=== PATIENT | male | born 1990 | race Caucasian/White ===

== ENCOUNTER 2020-07-31 07:04 | Observation (INO) | payer OTHER, SELFPAY ==
[2020-07-31] VITALS (71 sets, daily range): BP systolic 104–170; BP diastolic 68–114; PULSE 17–119; RESP 7–52; TEMP 36.2–36.6; O2SAT 85–100; BMI 21.8; BMI 20.7
--- NOTE | 2020-07-31 | DI.RAD.S_ITS ---
PROCEDURE: XR SHOULDER LT MIN 2V INDICATIONS: OPEN REDUCTION/ORIF HUMERUS TECHNIQUE: 3 fluoroscopic views of the shoulder were acquired. COMPARISON: [facility], BRIANNA, XR SHOULDER LT MIN 2V, 07/31/2020, 9:40. FINDINGS: Sequential images demonstrate reduction of an anterior inferior shoulder dislocation. There is a displaced greater tuberosity fracture. IMPRESSION: 1. Interval reduction of an anterior inferior shoulder dislocation. 2. Displaced greater tuberosity fracture. Dictated by: Joaquin Gonzalez M.D. on 07/31/2020 at 21:27 Approved by: Joaquin Gonzalez M.D. on 07/31/2020 at 21:28
--- NOTE | 2020-07-31 07:10 | DI.RAD.S_ITS ---
PROCEDURE: XR SHOULDER LT MIN 2V INDICATIONS: shoulder injury TECHNIQUE: 2 views of the shoulder were acquired. COMPARISON: [facility], CR, XR CHEST 1V, 07/31/2020, 7:29. FINDINGS: Suboptimal exam. Bones: Anterior dislocation of the humeral head. No suspicious bony lesions. Visualized ribs appear intact. Soft tissues: No suspicious soft tissue calcifications. IMPRESSION: Anterior shoulder dislocation. Dictated by: Sherif Ahn M.D. on 07/31/2020 at 8:05 Approved by: Sherif Ahn M.D. on 07/31/2020 at 8:07
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
[2020-07-31] MEDS: MORPHINE 4 MG/ML INJ IV (07:24)
[2020-07-31] MEDS: HYDROMORPHONE 1 MG INJ IV (07:41)
[2020-07-31] MEDS: SODIUM CHLORIDE 0.9% 1,000 ML 150 ML IV (07:41)
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
[2020-07-31] MEDS: fentaNYL 100 MCG/2 ML INJ 50 MCG IV (08:29)
--- NOTE | 2020-07-31 08:36 | DI.CT.S_ITS ---
PROCEDURE: CT FACIAL BONES WO CON INDICATIONS: trauma TECHNIQUE: Noncontrast 2.5 mm thick axial images acquired from the mandible through the frontal sinuses, with coronal and sagittal reformatting. For radiation dose reduction, the following was used: automated exposure control, adjustment of mA and/or kV according to patient size. COMPARISON: None. FINDINGS: Image quality: Excellent. Bones and teeth: There are displaced fractures of the lateral wall and floor of the right orbit, and nondisplaced fracture of the medial wall of the right orbit. Air collections are seen within the right orbit. There is a tiny hyperdensity within the right globe. Metallic densities in the medial aspect of the left orbit may be foreign bodies or surgical clips. Displaced fractures are present involving the anterior wall, lateral wall, roof, floor, and medial wall of the right maxillary sinus. There is nondisplaced fracture involving the medial wall and lateral wall of the left maxillary sinus. Air-fluid levels are present in maxillary sinuses bilaterally, compatible with hematomas. Mildly displaced right nasal bone fracture is seen. There is minimally displaced fracture of the nasal septum. The left nasal bone appears intact. There is a comminuted fracture of the left lateral pterygoid plate. Visualized portions of the mandible demonstrate no fractures or subluxation. Zygomatic arches are intact. Visualized portions of the skull base and auditory canals are intact. Sinuses: Paranasal sinuses are aerated, without fluid levels, mucosal thickening, or mucoceles. Mastoid air cells are aerated. Soft tissues: Right periorbital soft swelling. Paranasal soft tissue swelling. A couple of tiny superficial subcutaneous soft tissue hyperdensity in the prevascular area. No enlarged lymph nodes. Metallic soft tissue foreign body with streaking artifact medial to the right mandibular angle. Vascular: Visualized vascular structures appear normal in the absence of contrast. Bony vascular foramina and canals are intact. IMPRESSION: 1. Right orbital fractures involving the lateral and medial abel, as well as the orbital floor. 2. Multiple complex right maxillary sinus wall fractures as described. 3. Nondisplaced fracture of the medial wall and lateral wall of the left maxillary sinus. 4. Mildly displaced right nasal bone fracture is seen. 5. Minimally displaced fracture of the nasal septum. 6. Mildly comminuted fracture of the left lateral pterygoid plate. 7. Air-fluid levels are present in maxillary sinuses bilaterally are compatible with hematomas. 8. Small hyperdensity within the right globe could be a small foreign body. 9. Metallic foreign bodies or surgical clips in the medial aspect of the left orbit. 10. Right periorbital soft tissue swelling and paranasal swelling consistent with soft tissue contusions. Dictated by: Sherif Ahn M.D. on 07/31/2020 at 8:36 Approved by: Sherif Ahn M.D. on 07/31/2020 at 8:55
[2020-07-31 09:09] LABS: Add Manual Diff / Slide Review NO; Basophils Absolute Auto 0 /uL (0-100); Basophils Percent Auto 0.2 % (0-2); Eosinophils Absolute Auto 0 /uL (0-450); Eosinophils Percent Auto 0.2 % (2-4); Hematocrit 40.7 % (41-53); Hemoglobin 13.4 g/dL (13.5-17.5); Lymphocytes Absolute Auto 700 /uL (1100-4500); Lymphocytes Percent Auto 3.5 % (25-40); Mean Corpuscular Hemoglobin 28.3 PG (26-34); Mean Corpuscular Volume 85.5 fL (80-100); Monocytes Absolute Auto 1400 /uL (0-900); Monocytes Percent Auto 6.5 % (3-14); Neutrophils Absolute Auto 18600 /uL (1500-7000); Neutrophils Percent Auto 89.6 % (50-75); Platelet Count 240 X10^3/uL (150-400); Red Blood Cell Count 4.76 X10^6/uL (4.5-5.9); White Blood Cell Count 20.7 X10^3/uL (4.5-11.0)
[2020-07-31] MEDS: PROPARACAINE 0.5% OPHTH SOL 1 DROPS EYE-RIGHT (09:11)
[2020-07-31] MEDS: FLUORESCEIN 1 MG STRIP EYE-RIGHT (09:11)
[2020-07-31 09:15] LABS: INR 1.1 (0.9-1.3); Prothrombin Time 12.6 SECONDS (10.1-12.7)
[2020-07-31 09:18] LABS: PTT Partial Thromboplastin Tim 34 SECONDS (26.4-36.2)
[2020-07-31 09:21] LABS: Alanine Aminotransferase 17 IU/L (<50); Albumin 4.6 g/dL (3.5-5.0); Albumin Globulin Ratio 1.6 (1.0-2.8); Alkaline Phosphatase 90 U/L (38-126); Aspartate Aminotransferase 33 IU/L (17-59); BUN Creatinine Ratio 23.5 (6-22); Bilirubin Total 0.4 mg/dL (0.2-1.3); Blood Urea Nitrogen 12 mg/dL (9-20); Calcium 9.3 mg/dL (8.4-10.2); Carbon Dioxide 28 mmol/L (22-32); Chloride 100 mmol/L (98-107); Estimated Glomerular Filt Rate > 60.0 mL/min (>60); Ethanol (ETOH) < 10 mg/dL; Globulin 2.9 g/dL (1.7-4.1); Glucose 161 mg/dL (70-100); HEMOLYSIS 43 (0-50); Lipase 54 U/L (23-300); Potassium 3.6 mmol/L (3.4-5.1); Sodium 137 mmol/L (137-145); Total Protein 7.5 g/dL (6.3-8.2)
[2020-07-31] MEDS: KETAMINE 500 MG/5 ML INJ 75 MG IV (09:37)
--- NOTE | 2020-07-31 09:48 | DI.RAD.S_ITS ---
PROCEDURE: XR SHOULDER LT MIN 2V INDICATIONS: POST ATTEMPTED REDUCTION TECHNIQUE: To views of the shoulder were acquired. COMPARISON: [facility], CR, XR SHOULDER LT MIN 2V, 07/31/2020, 7:29. FINDINGS: Bones: Anterior inferior dislocation of the humeral head. The inferior glenoid appears irregular, suspicious for bony Bankart lesion. No suspicious bony lesions. Visualized ribs appear intact. Soft tissues: No suspicious soft tissue calcifications. IMPRESSION: 1. Persistent anterior inferior dislocation of humeral head. 2. Irregularity of the inferior glenoid, suspicious for Bankart lesion. Dictated by: Sherif Ahn M.D. on 07/31/2020 at 10:18 Approved by: Sherif Ahn M.D. on 07/31/2020 at 10:19
--- NOTE | 2020-07-31 09:56 | DI.CT.S_ITS ---
PROCEDURE: CT UE LT WO CON INDICATIONS: should dislocation, fracture TECHNIQUE: Noncontrast 1-1.5 mm thick sections acquired from the acromioclavicular joint to the inferior scapula, with coronal and sagittal reformatting. COMPARISON: Left shoulder x-ray 2 views, 07/31/2020. FINDINGS: Image quality: Excellent. Bones: There is a comminuted fracture of the humeral head involving the greater tuberosity with displacement. The humeral head is anterior-inferiorly dislocated. Subtle irregularity of the anterior inferior glenoid rim is suspicious for labral injury. Soft tissues: No soft tissue mass or large hematoma. IMPRESSION: 1. Anterior inferior shoulder dislocation. 2. Comminuted humeral head fracture involving the greater tuberosity. 3. Irregularity of the anterior inferior glenoid rim, suspicious for labral injury. Dictated by: Sherif Ahn M.D. on 07/31/2020 at 11:08 Approved by: Sherif Ahn M.D. on 07/31/2020 at 11:26
[2020-07-31] MEDS: fentaNYL 100 MCG/2 ML INJ 25 MCG IV ×4 (10:14→16:01)
[2020-07-31 10:41] LABS: COVID19 -Nasal RAPID Negative (Negative)
[2020-07-31] MEDS: SODIUM CHLORIDE 0.9% 1,000 ML 125 ML IV (14:21)
--- NOTE | 2020-07-31 14:57 | PC.NURSE ---
Admit Note Pt arrived to room 229 from ER at 1420, assisted to bed via slider board. Reports pain 8/10 to left shoulder, medicated with fentanyl IV per emar. Attempted to remove linens under pt from ER but pt was unable to tolerate any turns at this time. Right eye swollen shut with purple bruising, able to open on command. Left shoulder propped on pillows, sling in place but not secured at this time (pt comfort). NPO for surgery this evening to left shoulder. Oriented to call light/bed/tv controls. Call light within reach. No belongings with pt other than his clothing he came in with. Verified with ER that no belongings were with pt.
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
--- NOTE | 2020-07-31 17:59 | PC.NURSE ---
Addendum entered by Vianca rFeire R.N. 07/31/20 22:44: 2210 Pt arrived back to room from OR, bedside report received from PACU nurse, PENELOPE, pt alert and oriented, able to make needs known, states pain is 8/10 to Left shoulder, was medicated prior to leaving PACU. Connected to monitoring, fluids infusing as ordered, bed low and locked, call light within reach, will continue to monitor. Original Note: Evening shift note: A/O x4, sleepy but rouses to voice, c/o pain 7/10 medicated with fentynal as ordered. Linens removed from under patient after medicating, able to dress pt in gown and remove shorts and underwear in preparation for surgery. Right eye swollen completely shut with purple bruising and excessive swelling, pt able to open on command. Pt is able to readjust left shoulder, currently it is propped up on pillows, sling is not in use as requested by pt for comfort. On room air, sats 97-99%, NPO for surgery, bed low and locked, call light within reach, will continue to monitor. 1750 Pt taken via bed to OR, no further patient contact at this time.
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
[2020-07-31] MEDS: LACTATED RINGERS 1,000 ML 120 ML IV ×3 (18:45→21:11)
[2020-07-31] MEDS: CEFAZOLIN 1 GM VIAL IV ×2 (19:28→19:35)
--- NOTE | 2020-07-31 19:44 | SUR.OPER ---
Beach chair with Milton/Emelyn shoulder positioner. Lower body on padded OR bed. Head in foam padded head cradle, secured with straps. Non-operative arm secured <90 degrees abduction. Pillow under knees. Safety belt at thigh. Cloth tape over blanket over lower legs.
[2020-07-31] MEDS: BUPIVACAINE 0.5% W/ EPI (PF) 30 ML VIAL INJ (19:54)
[2020-07-31] MEDS: OXYCODONE IR 5 MG TABLET PO (21:59)
[2020-07-31] MEDS: CEFAZOLIN 1 GM VIAL 2 GM IV (22:30)
[2020-07-31] MEDS: ASPIRIN EC 81 MG TABLET PO (22:30)
[2020-07-31] MEDS: LACTATED RINGERS 1,000 ML 125 ML IV (22:31)
--- NOTE | 2020-07-31 22:31 | SUR.PHASEI ---
Pt transported by bed to ICU room 229. Update given. Pt in stable condition upon my departure from room.
[2020-08-01 00:30] VITALS: BP 130/80; PULSE 85; RESP 12; TEMP 36.8; O2SAT 99
[2020-08-01] MEDS: OXYCODONE IR 5 MG TABLET 10 MG PO ×5 (00:59→14:43)
[2020-08-01 04:00] VITALS: BP 116/82; PULSE 73; RESP 13; TEMP 36.6; O2SAT 97
[2020-08-01] MEDS: CEFAZOLIN 1 GM VIAL 2 GM IV (05:13)
[2020-08-01 05:26] LABS: Hematocrit 38.5 % (41-53); Mean Corpuscular HGB Conc 33.8 % (30-36); Mean Corpuscular Hemoglobin 28.7 PG (26-34); Platelet Count 249 X10^3/uL (150-400); Red Blood Cell Count 4.54 X10^6/uL (4.5-5.9); Red Cell Distribution Width 13.4 % (11.6-14.8); White Blood Cell Count 16.7 X10^3/uL (4.5-11.0)
[2020-08-01 08:00] VITALS: BP 127/74; PULSE 87; RESP 17; TEMP 36.7; O2SAT 100
[2020-08-01] MEDS: ACETAMINOPHEN 325 MG TABLET 975 MG PO ×2 (10:04→14:42)
[2020-08-01] MEDS: ASPIRIN EC 81 MG TABLET PO (10:05)
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
[2020-08-01 12:00] VITALS: BP 137/78; PULSE 83; RESP 17; TEMP 36.7; O2SAT 98
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
[2020-08-01 15:42] VITALS: BP 127/84; PULSE 103; RESP 18; TEMP 36.7; O2SAT 100
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
[2020-08-01] MEDS: ONDANSETRON 4 MG ODT PO (18:10)
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
--- NOTE | 2020-08-14 17:54 | PC.NURSE ---
Late Entry; NS infusion initiated 07/31 at 14:21 stopped per MD order at 22:08.
== END 2020-08-01 18:35 | disposition home or self-care (01) ==
LOC: ED 11:56 → AC 12:13 → ICU 08-01 10:14 → AC 08-01 10:57 → ICU 08-01 11:04
PROVIDERS: Admitting Provider Orthopaedic Surgery; Emergency Provider Emergency Medicine; Referring Provider Emergency Medicine; Visit Provider Orthopaedic Surgery
PROC: (CPT 23630; principal; 2020-07-31 16:45)
DX: S42.252A Displaced fracture of greater tuberosity of left humerus, initial encounter for closed fracture (principal); S02.40CA Maxillary fracture, right side, initial encounter for closed fracture; S02.2XXA Fracture of nasal bones, initial encounter for closed fracture; S02.842A Fracture of lateral orbital wall, left side, initial encounter for closed fracture; S02.831A Fracture of medial orbital wall, right side, initial encounter for closed fracture; S02.31XA Fracture of orbital floor, right side, initial encounter for closed fracture; S00.83XA Contusion of other part of head, initial encounter; S00.12XA Contusion of left eyelid and periocular area, initial encounter; S00.11XA Contusion of right eyelid and periocular area, initial encounter; S80.212A Abrasion, left knee, initial encounter; Y04.0XXA Assault by unarmed brawl or fight, initial encounter; Y92.009 Unspecified place in unspecified non-institutional (private) residence as the place of occurrence of the external cause; F17.210 Nicotine dependence, cigarettes, uncomplicated; F11.10 Opioid abuse, uncomplicated; Z20.822 Contact with and (suspected) exposure to COVID-19
CPT/HCPCS: 23630; 11044; 24505; 36415; 36592; 70450; 70486; 71045; 72125; 73030; 73200; 76000; 80053; 80320; 82962; 83690; 85025; 85027; 85610; 85730; 86850; 86900; 86901; 87635; 87797; 93005; 93010; 96361; 96374; 96375; 96376; 97161; 99152; 99153; 99285; 99291; C9803; G0378; J0690; J1100; J1170; J2270; J2405; J2704; J3010